=== PATIENT | male | born 1960 | race Caucasian/White ===

== ENCOUNTER 2024-01-28 06:56 | Day surgery (SDC) | payer MEDICARE, OTHER ==
[~2024-01-28] VITALS: Ht 180.3 cm; Wt 93.1 kg
[~2024-01-28 06:56] MED LIST: LR 1,000 ML IV SCH; SYNTHROID0.05 MG/TA PO
[2024-01-28 07:18] VITALS: BP 123/71; PULSE 63; TEMP 97.4
--- NOTE | 2024-01-28 07:46 | NUR ---
The patient ambulated back to [facility] independently using a steady gait and appeared to tolerate the activity well. Vital signs obtained. Consent signed. 18G IV started in left hand with one stick, LR Infusing without difficulty. Assessment completed. Home medications reconcilled. 18G IV started in left hand with LR infusing without difficulty. , Renu, brought back to be at his bedside. Warm blanket provded. Denies any further needs at this time.
[2024-01-28] MEDS ORDERED: Rocuronium 50 MG/5 ML Multi-Dose VIAL ONE (08:15)
[2024-01-28] MEDS ORDERED: Ondansetron 4 MG/2 ML VIAL ONE (08:15)
[2024-01-28] MEDS ORDERED: dexAMETHasone 10 MG/ML VIAL ONE (08:15)
[2024-01-28] MEDS ORDERED: Lidocaine PF 2% (20 MG/ML) 5 ML VIAL ONE (08:15)
[2024-01-28] MEDS ORDERED: fentaNYL 50 MCG/ML 2 ML VIAL ONE (08:15)
[2024-01-28] MEDS ORDERED: NS 10 ML IV ONE (08:15)
[2024-01-28] MEDS ORDERED: fentaNYL 50 MCG/ML 1 ML SYRINGE/VIAL [PACU/SDC ONLY] IV PRN (08:45)
[2024-01-28] MEDS ORDERED: HYDROmorphone 1 MG/1 ML SYRINGE [PACU/SDC ONLY] IV PRN (08:45)
[2024-01-28] MEDS ORDERED: hydrALAZINE 20 MG/ML 1 ML VIAL IV PRN (08:45)
[2024-01-28] MEDS ORDERED: Ondansetron 4 MG/2 ML VIAL IV PRN ×2 (08:45→10:30)
[2024-01-28] MEDS ORDERED: Morphine 2 MG/1 ML VIAL [PACU/SDC ONLY] IV PRN (08:45)
[2024-01-28] MEDS ORDERED: Topical Skin Adhesive 1 EACH (1 ML) TOP ONE (09:28)
[2024-01-28] MEDS ORDERED: NORCO 325 MG-51 TAB PO (10:28)
[2024-01-28] MEDS ORDERED: Ibuprofen 600 MG TAB PO PRN (10:30)
[2024-01-28] MEDS ORDERED: Acetaminophen 325 MG TAB PO PRN (10:30)
[2024-01-28 10:55] VITALS: BP 122/70; PULSE 60; TEMP 97
[2024-01-28 11:06] VITALS: TEMP 97
[2024-01-28 11:10] VITALS: BP 121/84; PULSE 62
[2024-01-28 11:25] VITALS: BP 137/70; PULSE 56
--- NOTE | 2024-01-28 11:45 | NUR ---
1055 RETURNS TO ROOM 1 PER CART WITH HOB ELEVATED 40 DEGREES. AWAKE, ALERT. RESP UNLABORED. VITAL SIGNS OBTAINED. ABD SOFT. 3 MID ABD LAP INCISIONS WITHOUT REDNESS OR DRAINAGE. REPORTS SLIGHT "GAS" DISCOMFORT. DENIES NEED FOR PAIN MED. 1110 HOB ELEVATED 70 DEGREES. TOLERATES PO SODA AND MUFFIN WITHOUT NAUSEA 1115 DISCHARGE INSTRUCTIONS REVIEWED. PATIENT AND VERBALIZE UNDERSTANDING. COPY PROVIDED IN DISCHARGE FOLDER 1130 SITS ON EDGE OF CART. DRESSES WITH MINIMAL ASSIST FROM
== END 2024-01-28 11:40 | disposition home or self-care (01) ==
LOC: SDCO 06:56
DX: K40.90 Unilateral inguinal hernia, without obstruction or gangrene, not specified as recurrent (principal); Z85.828 Personal history of other malignant neoplasm of skin
CPT/HCPCS: C1781; J0690; J1100; J2405; J2704; J3010; J7120